=== PATIENT | male | born 1955 | race Caucasian/White ===

== ENCOUNTER 2018-05-05 09:34 | Outpatient (CLI) | payer MEDICARE, BC ==
--- NOTE | 2018-05-05 12:17 | MRI ---
BRAIN MRI WITH AND WITHOUT CONTRAST MRI IAC WITH AND WITHOUT CONTRAST: Indication: Dizziness FINDINGS: There is age appropriate size of the ventricular system. No acute territorial infarction, mass effect , or midline shift. Mild chronic ischemic disease is present. There is no evidence of mass or patholo gic enhancement of either CP angle cistern. No significant abnormality of the imaged skull base flow voids. Scattered mucosal thickening/cyst formation of the paranasal sinuses is present. There is mild right mastoid fluid. No pathologic intraaxial enhancement. IMPRESSION: 1. No acute intracranial abnormalities. 2. No pathologic enhancement or mass effect of either CP angle cistern. 3. Mild chronic ischemic disease. POS: [facility]
== END 2018-05-05 09:35 | disposition home or self-care (01) ==
LOC: BICMRI 09:34
PROVIDERS: ATTEND Specialist
DX: R42 Dizziness and giddiness (principal); I67.82 Cerebral ischemia
CPT/HCPCS: 70553